=== PATIENT | male | born 1960 | race Native Hawaiian/Other Pacific Islander ===

== ENCOUNTER 2016-10-01 11:23 | Emergency (ER) | payer BC, OTHER ==
[~2016-10-01] VITALS: Ht 167.6 cm; Wt 62.0 kg
[~2016-10-01 11:23] MED LIST: ASPI325T PO; DIOV320T PO; ROSU10 PO
[2016-10-01 11:43] VITALS: BP 161/81; PULSE 83; RESP 16; TEMP 98.4; O2SAT 100
[2016-10-01] MEDS ORDERED: LIDOCAINE 2%/EPINEPHrine 1:100,000 30ML MDV INFIL ONE (12:00)
[2016-10-01] MEDS ORDERED: TETANUS/DIPHTHERIA TOXOID ADULT 0.5 ML VIAL IM ONE (12:00)
[2016-10-01] MEDS ORDERED: LISI40TA PO (12:01)
[2016-10-01] MEDS ORDERED: PRAV20TA2 PO (12:01)
--- NOTE | 2016-10-01 12:25 | RADRPT ---
EXAM DATE/TIME: 10/01/2016 12:14 [place] COMPARISON: No previous studies available for comparison. INDICATIONS : Head trauma.Laceration. RADIATION DOSE: 56.31 CTDIvol (mGy) MEDICAL HISTORY : None SURGICAL HISTORY : None. ENCOUNTER: Initial ACUITY: 1 day PAIN SCALE: 2/10 LOCATION: Right cranial posterior TECHNIQUE: Multiple contiguous axial images were obtained of the head. Using automated exposure control and adj ustment of the mA and/or kV according to patient size, radiation dose was kept as low as reasonably a chievable to obtain optimal diagnostic quality images. DICOM format image data is available electro nically for review and comparison. FINDINGS: CEREBRUM: The ventricles are normal for age. No evidence of midline shift, mass lesion, hemorrhage or acute in farction. No extra-axial fluid collections are seen. POSTERIOR FOSSA: The cerebellum and brainstem are intact. The 4th ventricle is midline. The cerebellopontine angle i s unremarkable. EXTRACRANIAL: The visualized portion of the orbits is intact. SKULL: The calvaria is intact. No evidence of skull fracture. CONCLUSION: Normal examination. Loretta Taylor MD on October 01, 2016 at 12:23 Board Certified Radiologist. This report was verified electronically.
[2016-10-01] MEDS ORDERED: LIDOCAINE 2%/EPINEPHrine PF 1:200,000 20ML SDV INFIL ONE (12:30)
[2016-10-01] MEDS ORDERED: LIDOCAINE 2%/EPINEPHrine 1:100,000 50ML MDV INFIL ONE (12:30)
--- NOTE | 2016-10-01 12:37 | PD ---
HPI Chief Complaint: Head Injury Time Seen by Provider: 11:54 Travel History International Travel<30 days: No Contact w/Intl Traveler<30days: No Traveled to known affect area: No History of Present Illness HPI 56-year-old male states he fell off his riding lawnmower and hit the back of his head sustaining a laceration. He did not black out. He denies other concurrent complaints. This occurred shortly prior to arrival. He does not recall his last tetanus dose. PFSH Past Medical History Medical History: Denies Significant Hx Cardiac Catheterization: No Cardiovascular Problems: Yes High Cholesterol: Yes Congestive Heart Failure: No Diabetes: No Diminished Hearing: No Hypertension: Yes Musculoskeletal: Yes (BILAT ANKLE INJECTIONS) Myocardial Infarction: No Tetanus Vaccination: Unknown Influenza Vaccination: No Past Surgical History Surgical History: No Previous Surgery Coronary Artery Bypass Graft: No Social History Alcohol Use: Yes (SOCIAL) Tobacco Use: No Substance Use: No Allergies-Medications (Allergen,Severity, Reaction): Coded Allergies: No Known Allergies (Verified , 10/01/16) Reported Meds & Prescriptions Reported Meds & Active Scripts Active Reported Pravastatin 20 Mg Tab 20 Mg PO DAILY Lisinopril 40 Mg Tab 40 Mg PO DAILY Review of Systems Except as stated in HPI: all other systems reviewed are Neg Physical Exam Narrative General: 56 y/o patient in no apparent distress Skin: trauma noted to back of head with simple laceration Eyes: Pupils equal, eomi NECK: no pain with palpation, nexus criteria negative Cardiovascular: Regular rate and rhythm Respiratory: Normal respiratory effort noted, clear to auscultation bilaterally Abdomen: soft, nontender, nondistended Back: No step-offs, midline spine nontender with palpation Extremities: No pain over main joints Neuro: awake, alert, sensation and motor grossly intact Data Data Last Documented VS Vital Signs Date Time Temp Pulse Resp B/P (MAP) Pulse Ox O2 Delivery O2 Flow Rate FiO2 10/01/16 12:01 20 10/01/16 11:43 98.4 83 161/81 (107) [address] Brain W/O Iv Contrast(Rout) (10/01/16 ) Tetanus/Diphtheria Tox Adult (Tetanus/Di (10/01/16 12:00) Lidoca-Epi Pf 2%-1:200,000 Inj (Xylocain (10/01/16 12:30) Lidocai-Epi 2%-1:100,000 Inj (Xylocaine- (10/01/16 12:30) MDM Medical Decision Making Medical Screen Exam Complete: Yes Emergency Medical Condition: Yes Medical Record Reviewed: Yes (past history confirmed) Interpretation(s) CT brain no acute Differential Diagnosis Intercranial bleed, fracture, laceration Narrative Course Will check CT brain, update tetanus and laceration repair Patient denies any new complaints and states that they are feeling better. Patient happy with care, all questions answered. Patient knows that follow up is incumbent on them and to return to the emergency room immediately if new or worsening symptoms develop. Patient given strict return precautions, vitals reviewed and are normal, agrees to further workup as an outpatient. Procedures Procedure Narrative LACERATION LOCATION: Occipital scalp LENGTH: Approximately 1.5 cm NUMBER OF STITCHES/DOUG: 4 doug REPAIR: The area of the laceration was prepped. The laceration was infiltrated with 2% lidocaine with epi. The wound was copiously irrigated and explored without evidence of foreign body or neurovascular injury. The wound was closed using doug. This was a single layer repair. A sterile dressing was applied. The patient was advised to keep the dressing clean and dry. Patient tolerated the procedure well. Diagnosis Primary Impression: Scalp laceration Qualified Codes: S01.01XA - Laceration without foreign body of scalp, initial encounter Patient Instructions: General Instructions Additional Instructions: Have doug removed within one week, return as needed, Tylenol as needed for pain Med/Other Pt SpecificInfo: No Change to Meds Disposition: 01 DISCHARGE HOME Condition: Stable Marychuy Cannon MD Oct 01, 2016 12:37
== END 2016-10-01 13:16 | disposition home or self-care (01) ==
LOC: PHED 11:23
DX: S01.01XA Laceration without foreign body of scalp, initial encounter (principal); V84.5XXA Driver of special agricultural vehicle injured in nontraffic accident, initial encounter; Z23 Encounter for immunization
CPT/HCPCS: 12001; 70450; 90471; 90714

== ENCOUNTER 2016-10-11 17:23 | Emergency (ER) | payer OTHER ==
[~2016-10-11] VITALS: Ht 167.6 cm; Wt 60.9 kg
[~2016-10-11 17:23] MED LIST changes: -ASPI325T PO; -DIOV320T PO; +LISI40TA PO; +PRAV20TA2 PO; -ROSU10 PO
[2016-10-11 17:53] VITALS: BP 136/75; PULSE 82; RESP 18; TEMP 98.4; O2SAT 98
--- NOTE | 2016-10-11 18:33 | PD ---
HPI Chief Complaint: Wound/Suture/Staple Re-Check Time Seen by Provider: 18:31 Travel History International Travel<30 days: No Contact w/Intl Traveler<30days: No Traveled to known affect area: No History of Present Illness HPI 56-year-old male presents to the ED for evaluation of scalp laceration and staple removal. Patient states that he fell off a lawnmower about 10 days ago. He denies pain, bleeding, redness, discharge from the wound. He denies fever or chills. PFSH Past Medical History Cardiac Catheterization: No Cardiovascular Problems: Yes High Cholesterol: Yes Congestive Heart Failure: No Diabetes: No Diminished Hearing: No Hypertension: Yes Musculoskeletal: Yes (BILAT ANKLE INJECTIONS) Myocardial Infarction: No Past Surgical History Coronary Artery Bypass Graft: No Social History Alcohol Use: Yes (SOCIAL) Tobacco Use: No Substance Use: No Allergies-Medications (Allergen,Severity, Reaction): Coded Allergies: No Known Allergies (Verified , 10/11/16) Reported Meds & Prescriptions Reported Meds & Active Scripts Active Reported Pravastatin 20 Mg Tab 20 Mg PO DAILY Lisinopril 40 Mg Tab 40 Mg PO DAILY Review of Systems Except as stated in HPI: all other systems reviewed are Neg Physical Exam Narrative GENERAL: Well-nourished, well-developed [place] male in no acute distress SKIN: Focused skin assessment warm/dry. 5 doug in the right posterior aspect of the scalp. Small amount of crusting. No active bleeding. No tenderness. No redness. No warmth. HEAD: Normocephalic. EYES: No scleral icterus. No injection or drainage. NECK: Supple, trachea midline. No JVD or lymphadenopathy. CARDIOVASCULAR: Regular rate and rhythm without murmurs, gallops, or rubs. RESPIRATORY: Breath sounds equal bilaterally. No accessory muscle use. GASTROINTESTINAL: Abdomen soft, non-tender, nondistended. MUSCULOSKELETAL: No cyanosis, or edema. BACK: Nontender without obvious deformity. No CVA tenderness. Data Data Last Documented VS Vital Signs Date Time Temp Pulse Resp B/P (MAP) Pulse Ox O2 Delivery O2 Flow Rate FiO2 10/11/16 17:53 98.4 82 18 136/75 (95) 98 MDM Medical Decision Making Medical Screen Exam Complete: Yes Emergency Medical Condition: Yes Differential Diagnosis Laceration versus wound infection versus staple removal versus other Narrative Course 56-year-old male presents to the ED for evaluation of scalp laceration and staple removal. Patient states that he fell off a lawnmower about 10 days ago. He denies pain, bleeding, redness, discharge from the wound. He denies fever or chills. Vitals reviewed his: Exam reveals 5 doug in the right posterior aspect of the scalp. Small amount of crusting. No active bleeding. No tenderness. No redness. No warmth. 5 doug were removed without incident. Patient is instructed to keep the wound clean and dry. He is stable and discharged home. Diagnosis Primary Impression: Encounter for staple removal Referrals: Primary Care Physician Patient Instructions: General Instructions Additional Instructions: Rest, hydrate. Return to normal, gentle activities as tolerated. Follow-up with your primary care provider. Return to the ED for any urgent or emergent medical condition. Disposition: 01 DISCHARGE HOME Condition: Stable Renuka Sherman Oct 11, 2016 18:32
== END 2016-10-11 18:42 | disposition home or self-care (01) ==
LOC: PHEFT 17:23
DX: Z48.02 Encounter for removal of sutures (principal)
CPT/HCPCS: 99281